=== PATIENT | male | born 1995 ===

== ENCOUNTER 2018-12-18 12:03 | Emergency (ER) | payer SELFPAY ==
[2018-12-18 12:33] VITALS: BP 106/43
--- NOTE | 2018-12-18 13:08 | EDPHY ---
H & P Stated Complaint: heroin/meth binge-med clear to care home Time Seen by Provider: 12/18/18 12:59 HPI/ROS: CHIEF COMPLAINT: Medical clearance for care home HISTORY OF PRESENT ILLNESS: 23-year-old male with polysubstance abuse presents for medical clearance for care home. He used heroin and methamphetamine this morning , as well as drinking an unspecified amount of alcohol. He was found running throughout town and was arrested by PD. On EMS arrival, he was given Narcan because of somnolence and he aroused somewhat. He currently denies any complaints or injuries. REVIEW OF SYSTEMS: complete 10 point ROS reviewed and is negative except for the noted elements in the HPI - Personal History Current Tetanus/Diphtheria Vaccine: Unsure - Social History Smoking Status: Unknown if ever smoked - Physical Exam Exam: General Appearance: Drowsy, opens eyes to tactile stimuli, able to answer questions Eyes: Pupils equal and round, no conjunctival pallor or injection, no nystagmus ENT, Mouth: Mucous membranes moist Neck: Normal inspection Respiratory: Lungs are clear to auscultation Cardiovascular: Regular rate and rhythm Gastrointestinal: Abdomen is soft and nontender Neurological: Drowsy, oriented x2, nonfocal exam Skin: Warm and dry, abrasion right elbow Extremities: No swelling, no obvious pain with range of motion Psychiatric: Mood and affect normal Constitutional: Initial Vital Signs Temperature (C) 36.8 C 12/18/18 12:31 Heart Rate 115 H 12/18/18 12:31 Respiratory Rate 16 12/18/18 12:31 Blood Pressure 106/43 L 12/18/18 12:31 O2 Sat (%) 96 12/18/18 12:31 O2 Delivery Mode Room Air Allergies/Adverse Reactions: No Known Allergies Allergy (Unverified 12/18/18 12:31) Home Medications: Medication Instructions Recorded NK [No Known Home Meds] 12/18/18 Medical Decision Making ED Course/Re-evaluation: Obs in ED, pt remained alert. Able to walk with a steady gait. Departure - Departure Disposition: Law Enforcement/Court/Nursing Home Clinical Impression: Polysubstance abuse Condition: Good Instructions: Polysubstance Abuse (ED) Additional Instructions: pt is medically cleared for care home. Referrals: [facility],. [Clinic] - As per Instructions
== END 2018-12-18 13:34 ==
DX: F19.10 Other psychoactive substance abuse, uncomplicated (principal)